=== PATIENT | female | born 2000 | race Caucasian/White ===

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

== ENCOUNTER → 2021-01-03 | Outpatient (CLI) | payer BC, OTHER ==
--- NOTE | 2021-01-03 12:03 | KCIC ---
XR RIBS MIN 3 VIEWS LT W/PA CHEST History: Left mid rib pain for months. No known injury. Comparison: None. Technique: PA view of the chest with 3 views of left ribs. Findings: The lungs are adequately and symmectrically inflated. No airspace consolidation, pleural effusion or pneumothorax. The cardiomediastinal silhoutte and pulmonary vasculature are within normal limits. Sof t tissues and osseous structures are unremarkable. No rib fracture or lesion identified. Impression: 1. No acute cardiopulmonary process. No rib fracture or lesion identified. Electronically signed by: Philip Lou MD (01/03/2021 12:01 PM) [facility]
--- NOTE | 2021-01-03 12:06 | KCIC ---
XR HIP (WITH OR WITHOUT PELVIS)LEFT 1 VIEW History: Reason: Left hip pain. Hurts to walk. No known injury. / Spl. Instructions: / History: Comparison: None. Technique: AP pelvis and cone-down frog-leg lateral view of the left hip. Findings: Normal mineralization. No fracture or dislocation. Femoral acetabular joint spaces are preserved with out narrowing or erosive change. Pubic symphysis and sacroiliac joints are unremarkable. An intrauter ine device projects in the central pelvis. Soft tissues are otherwise unremarkable. Impression: 1. Unremarkable left hip. Electronically signed by: Philip Lou MD (01/03/2021 12:04 PM) [facility]
== END ==
LOC: KCIC 09:42
PROVIDERS: ATTEND Family Medicine
DX: R07.81 Pleurodynia (principal); M25.552 Pain in left hip
CPT/HCPCS: 71101; 73501